=== PATIENT | female | born 1945 | race Caucasian/White ===

== ENCOUNTER → 2016-09-11 | Outpatient (CLI) | payer MEDICARE ==
[~2016-09-11] MED LIST: ACETAMINOPHEN PO; COMBIGAN EYE DRO5 ML OP; COREG3.125 MG PO; ECOTRIN325 MG PO; HYDROCHLOROTHIA25 MG PO; LOVASTATIN20 MG PO; LUMIGAN2.5 ML OP; OMEPRAZOLE40 MG PO; PRINIVIL40 MG PO; SPIRONOLACTONE50 MG PO
[2016-09-11 14:57] LABS: ALBUMIN SERUM 3.8 g/dL (3.5-5.0); BILIRUBIN,TOTAL 0.3 mg/dL (0.2-2.0); BUN/CREATININE RATIO 30.47; CALCIUM SERUM 8.6 mg/dL (8.4-10.2); CREATININE SERUM 2.1 mg/dL (0.6-1.4); GLOM FILT RATE Estimated 23.1 mL/min (>60); PHOSPHOROUS 4.2 mg/dL (2.5-4.6); POTASSIUM 4.4 mmol/L (3.5-5.1); PROTEIN TOTAL SERUM 6.9 g/dL (6.0-8.3); URIC ACID 6.5 mg/dL (2.6-7.2)
[2016-09-14 07:05] LABS: CALCIUM (PTHINTACT) 9.4 mg/dL (8.6-10.4)
== END | disposition home or self-care (01) ==
LOC: SLAB 14:27
PROVIDERS: Internal Medicine Nephrology
DX: N18.3 Chronic kidney disease, stage 3 (moderate) (principal); I27.2 Other secondary pulmonary hypertension
CPT/HCPCS: 36415; 80053; 82310; 83970; 84100; 84550

== ENCOUNTER → 2016-10-28 | Outpatient (CLI) | payer MEDICARE ==
[2016-10-28 11:40] LABS: BILIRUBIN,TOTAL 0.3 mg/dL (0.2-2.0); BUN/CREATININE RATIO 26.66; CALCIUM SERUM 9.1 mg/dL (8.4-10.2); CREATININE SERUM 1.5 mg/dL (0.6-1.4); GLOM FILT RATE Estimated 34.7 mL/min (>60); MAGNESIUM 2.4 mg/dL (1.6-3.0); POTASSIUM 4.2 mmol/L (3.5-5.1); PROTEIN TOTAL SERUM 6.8 g/dL (6.0-8.3); URIC ACID 10.2 mg/dL (2.6-7.2)
== END | disposition home or self-care (01) ==
LOC: SLAB 11:12
PROVIDERS: Internal Medicine Nephrology
DX: N17.9 Acute kidney failure, unspecified (principal); N18.4 Chronic kidney disease, stage 4 (severe)
CPT/HCPCS: 36415; 80053; 83735; 84550

== ENCOUNTER → 2017-01-08 | Outpatient (CLI) | payer MEDICARE ==
[2017-01-08 12:14] LABS: BILIRUBIN,TOTAL 0.7 mg/dL (0.2-2.0); BUN/CREATININE RATIO 34.37; CALCIUM SERUM 8.8 mg/dL (8.4-10.2); CREATININE SERUM 1.6 mg/dL (0.6-1.4); GLOM FILT RATE Estimated 32.1 mL/min (>60); PHOSPHOROUS 3.6 mg/dL (2.5-4.6); POTASSIUM 4.4 mmol/L (3.5-5.1); PROTEIN TOTAL SERUM 6.9 g/dL (6.0-8.3); URIC ACID 6.5 mg/dL (2.6-7.2)
[2017-01-11 09:39] LABS: CALCIUM (PTHINTACT) 9.7 mg/dL (8.6-10.4)
== END | disposition home or self-care (01) ==
LOC: SLAB 11:29
PROVIDERS: Internal Medicine Nephrology
DX: N18.3 Chronic kidney disease, stage 3 (moderate) (principal); N25.81 Secondary hyperparathyroidism of renal origin
CPT/HCPCS: 36415; 80053; 82310; 83970; 84100; 84550